=== PATIENT | female | born 1945 | race Caucasian/White ===

== ENCOUNTER 2016-12-09 07:42 | Day surgery (SDC) | payer MEDICARE, OTHER ==
[~2016-12-09] VITALS: Ht 165.1 cm; Wt 111.1 kg
--- NOTE | ~2016-12-09 | EGD ---
EGD REPORT [facility] [address] [address] NAME: JO-ANN XAVIER : [birth year] STATUS : [place] [facility] [place] [id number] AGE: 70 ADM/REG DATE : 12/09/16 MR#: [id number] REPORT SERV DATE: 12/09/16 DICTATED BY: EVAN ARRIAGA III DATE: 12/09/16 REPORT STATUS : Draft TRANSCRIBED BY: [facility] DATE: 12/09/16 Endoscopy Center Patient Name: Jo-Ann Xavier Date of : 1945 Attending MD: EVAN ARRIAGA III, MD Procedure Date No Time: 12/09/2016 Procedure: Upper GI endoscopy Indications: Follow-up of esophageal varices Referring MD: ROBBIN RUIZ Medicines: Propofol per Anesthesia Complications: No immediate complications. Procedure: After obtaining informed consent, the endoscope was passed under direct vision. Throughout the procedure, the patient's blood pressure, pulse, and oxygen saturations were monitored continuously. The GIF [id number] [id number] was introduced through the mouth, and advanced to the third part of duodenum. The upper GI endoscopy was accomplished with ease. The patient tolerated the procedure well. Findings: Grade I varices were found in the lower third of the esophagus. A non-obstructing Schatzki ring (acquired) was found at the gastroesophageal junction. A medium-sized hiatus hernia was present. The examined duodenum was normal. The entire examined stomach was normal. The cardia and gastric fundus were normal on retroflexion. Impression: - Grade I esophageal varices. - Non-obstructing Schatzki ring. - Hiatus hernia. - Normal examined duodenum. - Normal stomach. Recommendation: - Patient has a contact number available for emergencies. The signs and symptoms of potential delayed complications were discussed with the patient. Return to normal activities tomorrow. Written discharge instructions were provided to the patient. - Discharge patient to home. - Return to previous diet. - Follow an antireflux regimen. - Continue present medications. - Repeat the upper endoscopy in 1 year for surveillance. EGD REPORT [address] [place]. [address] NAME: JO-ANN XAVIER : [birth year] STATUS : REG [facility]#: [id number] AGE: 70 ADM/REG DATE : 12/09/16 MR#: [id number] REPORT SERV DATE: 12/09/16 DICTATED BY: EVAN ARRIAGA III DATE: 12/09/16 REPORT STATUS : Draft TRANSCRIBED BY: [employer] DATE: 12/09/16 Procedure Code(s): --- Professional --- 07579, Esophagogastroduodenoscopy, flexible, transoral; diagnostic, including collection of specimen(s) by brushing or washing, when performed (separate procedure) Diagnosis Code(s): --- Professional --- I85.00, Esophageal varices without bleeding K22.2, Esophageal obstruction K44.9, Diaphragmatic hernia without obstruction or gangrene CPT copyright 2013 [employer]. All rights reserved. The codes documented in this report are preliminary and upon tire repairer review may be revised to meet current compliance requirements. EVAN ARRIAGA III, MD 12/09/2016 10:02 AM This report has been signed electronically. Number of Addenda: 0 Note Initiated On: 12/09/2016 9:54 AM Scope Withdrawal Time 0 hours 0 minutes 0 seconds [id number] [id number]
--- NOTE | ~2016-12-09 | EGD ---
EGD REPORT [facility] [address] [place]. [address] NAME: JO-ANN XAVIER : [birth year] STATUS : [place] [facility] [place]#: [id number] AGE: 70 ADM/REG DATE : 12/09/16 MR#: [id number] REPORT SERV DATE: 12/09/16 DICTATED BY: EVAN ARRIAGA III DATE: 12/09/16 REPORT STATUS : Draft TRANSCRIBED BY: [facility] DATE: 12/09/16 Endoscopy Center Patient Name: Jo-Ann Xavier Date of : 1945 Attending MD: EVAN ARRIAGA III, MD Procedure Date No Time: 12/09/2016 Procedure: Colonoscopy Indications: High risk colon cancer surveillance: Personal history of colonic polyps Referring MD: ROBBIN RUIZ Medicines: Propofol per Anesthesia Complications: No immediate complications. Procedure: After I obtained informed consent, the scope was passed under direct vision. Throughout the procedure, the patient's blood pressure, pulse, and oxygen saturations were monitored continuously. The PCF [id number] was introduced through the anus and advanced to the cecum, identified by appendiceal orifice and ileocecal valve. The colonoscopy was performed with ease. The patient tolerated the procedure well. The quality of the bowel preparation was good. Findings: Multiple diverticula were found in the sigmoid colon. A sessile polyp was found in the cecum. The polyp was 4 mm in size. The polyp was removed with a cold biopsy forceps. Resection and retrieval were complete. Three sessile polyps were found in the sigmoid colon. The polyps were 3 to 5 mm in size. These polyps were removed with a cold biopsy forceps. Resection and retrieval were complete. Impression: - Diverticulosis in the sigmoid colon. - One 4 mm polyp in the cecum. Resected and retrieved. - Three 3 to 5 mm polyps in the sigmoid colon. Resected and retrieved. Recommendation: - Patient has a contact number available for emergencies. The signs and symptoms of potential delayed complications were discussed with the patient. Return to normal activities tomorrow. Written discharge instructions were provided to the patient. - Discharge patient to home. - High fiber diet indefinitely. - Continue present medications. - Await pathology results. EGD REPORT [address] [place]. [address] NAME: JO-ANN XAVIER : [birth year] STATUS : [place] [facility] [place]#: [id number] AGE: 70 ADM/REG DATE : 12/09/16 MR#: [id number] REPORT SERV DATE: 12/09/16 DICTATED BY: EVAN ARRIAGA III DATE: 12/09/16 REPORT STATUS : Draft TRANSCRIBED BY: [employer] DATE: 12/09/16 - Repeat colonoscopy after studies are complete for surveillance based on pathology results. Procedure Code(s): --- Professional --- 79413, Colonoscopy, flexible, proximal to splenic flexure; with biopsy, single or multiple Diagnosis Code(s): --- Professional --- K57.30, Diverticulosis of large intestine without perforation or abscess without bleeding D12.5, Benign neoplasm of sigmoid colon D12.0, Benign neoplasm of cecum Z86.010, Personal history of colonic polyps CPT copyright 2013 [employer]. All rights reserved. The codes documented in this report are preliminary and upon executive assistant to president review may be revised to meet current compliance requirements. EVAN ARRIAGA III, MD 12/09/2016 10:22 AM This report has been signed electronically. Number of Addenda: 0 Note Initiated On: 12/09/2016 9:53 AM Scope Withdrawal Time 0 hours 11 minutes 30 seconds [id number] [id number]
[~2016-12-09 07:42] MED LIST: ALEVE220 MG PO; AMARYL2 PO; ASAB PO; ATEN50 PO; B COMPLETE PO; BILBERRY100 MG PO; COCONUT OIL PO; CYANO1000T PO; FISH-EPA1000 MG PO; GLUCCHONDR PO; GLUCPH PO; L20 PO; MILK THISTLE PO; MOBIC15 MG PO; MULTIPLE VIT PO; NEUR300 PO; NEUR600 PO; PRILO PO; PRIN5 PO; PROZAC PO; RED YEAS1 OR; TYLENOL ARTH650 MG PO; TYLENOL ARTHRITIS PO; VITE PO; WELLSR100 PO; Z300 PO
== END 2016-12-09 23:59 | disposition home or self-care (01) ==
LOC: DMU 07:42
PROVIDERS: Internal Medicine Gastroenterology
PROC: 0DJ08ZZ Inspection of Upper Intestinal Tract, Via Natural or Artificial Opening Endoscopic (ICD-10-PCS; 2016-12-09)
PROC: 0DBH8ZX Excision of Cecum, Via Natural or Artificial Opening Endoscopic, Diagnostic (ICD-10-PCS; principal; 2016-12-09 10:00)
PROC: 0DBN8ZX Excision of Sigmoid Colon, Via Natural or Artificial Opening Endoscopic, Diagnostic (ICD-10-PCS; 2016-12-09 10:00)
DX: Z12.11 Encounter for screening for malignant neoplasm of colon (principal); I85.00 Esophageal varices without bleeding; D12.0 Benign neoplasm of cecum; D12.5 Benign neoplasm of sigmoid colon; K57.30 Diverticulosis of large intestine without perforation or abscess without bleeding; K22.2 Esophageal obstruction; K44.9 Diaphragmatic hernia without obstruction or gangrene; I10 Essential (primary) hypertension; G47.33 Obstructive sleep apnea (adult) (pediatric); M79.7 Fibromyalgia; K74.60 Unspecified cirrhosis of liver; E11.9 Type 2 diabetes mellitus without complications; Z86.010 Personal history of colon polyps; Z88.8 Allergy status to other drugs, medicaments and biological substances; Z90.710 Acquired absence of both cervix and uterus; Z90.722 Acquired absence of ovaries, bilateral; Z90.49 Acquired absence of other specified parts of digestive tract; Z98.41 Cataract extraction status, right eye; Z98.42 Cataract extraction status, left eye; Z96.651 Presence of right artificial knee joint; Z98.890 Other specified postprocedural states
CPT/HCPCS: 82962; 88305; J0690